=== PATIENT | female | born 1955 | race Caucasian/White ===

== ENCOUNTER 2016-11-15 13:07 | Emergency (ER) | payer MEDICAID ==
[~2016-11-15] VITALS: Ht 167.6 cm; Wt 113.4 kg
[2016-11-15] MEDS ORDERED: [UNRECOGNIZED DRUG - REMARK] (13:21)
--- NOTE | 2016-11-15 13:38 | NUR ---
in assessing patient.
--- NOTE | 2016-11-15 13:48 | NUR ---
X-ray done at this time.
[2016-11-15 14:26] VITALS: BP 110/54
--- NOTE | 2016-11-15 14:26 | NUR ---
Patient discharged to home in stable conditon. Written and verbal after care instructions given. Patient verbalizes understanding of instructions.
== END 2016-11-15 14:27 | disposition home or self-care (01) ==
LOC: ER 13:07
DX: M79.672 Pain in left foot (principal); I10 Essential (primary) hypertension
CPT/HCPCS: 73620; A4663